=== PATIENT | female | born 2000 | race Caucasian/White ===

== ENCOUNTER 2024-03-10 17:21 | Emergency (ER) | payer SELFPAY ==
[~2024-03-10] VITALS: Ht 175.3 cm; Wt 65.9 kg
[2024-03-10 17:26] VITALS: TEMP 97.2
[2024-03-10] MEDS ORDERED: Mag/Al Hydrox/Simeth Susp 30 ML CUP PO ONE (17:45)
[2024-03-10 18:30] VITALS: BP 126/89; PULSE 78
== END 2024-03-10 18:30 | disposition home or self-care (01) ==
LOC: COL.ER 17:21
DX: R13.10 Dysphagia, unspecified (principal); R10.13 Epigastric pain